=== PATIENT | male | born 2000 | race Caucasian/White ===

== ENCOUNTER 2022-03-05 08:00 | Outpatient (RCR) | payer BC ==
[2022-03-04 08:22] VITALS: BP 116/74; PULSE 75; TEMP 98.6
[~2022-03-05] VITALS: Ht 180.3 cm; Wt 85.8 kg
[2022-03-05 08:43] VITALS: BP 114/62; PULSE 69; TEMP 98.6
== END 2022-03-05 08:56 | disposition home or self-care (01) ==
LOC: EUO 08:00
DX: L05.91 Pilonidal cyst without abscess (principal)